=== PATIENT | female | born 1960 | race Caucasian/White ===

== ENCOUNTER → 2017-10-07 | Outpatient (CLI) | payer BC | LOC: CFH 12:15 | PROVIDERS: ATTEND Obstetrics & Gynecology | DX: Z12.31 Encounter for screening mammogram for malignant neoplasm of breast (principal) | CPT/HCPCS: 77067 ==

== ENCOUNTER 2017-12-10 14:24 | Inpatient (IN) | payer BC ==
[~2017-12-10] VITALS: Ht 157.5 cm; Wt 72.1 kg
[2017-12-10 15:25] LABS: BASOPHILS # (AUTO) 0.04 x10^3/uL (0-0.1); BASOPHILS % (AUTO) 1 % (0-1); EOSINOPHILS # (AUTO) 0.21 x10^3/uL (0-0.4); EOSINOPHILS % (AUTO) 3 % (1-7); LYMPHOCYTES # (AUTO) 2.53 x10^3/uL (1-3.4); LYMPHOCYTES % (AUTO) 32 % (22-44); MD NO; MEAN CORPUSCULAR HEMOGLOBIN 29.9 pg (27.0-34.8); MEAN CORPUSCULAR HGB CONC 33.7 g/dL (32.4-35.8); MEAN CORPUSCULAR VOLUME 88.9 fL (80-100); MEAN PLATELET VOLUME 9.4 fL (7.4-10.4); MONOCYTES # (AUTO) 0.69 x10^3/uL (0.2-0.8); MONOCYTES % (AUTO) 9 % (2-9); NEUTROPHILS # (AUTO) 4.55 x10^3/uL (1.8-6.8); NEUTROPHILS % (AUTO) 57 % (42-75); PLATELET COUNT 287 x10^3/uL (130-400); RED BLOOD COUNT 4.61 x10^6/uL (3.82-5.3); RED CELL DISTRIBUTION WIDTH 13.4 % (9.6-15.2)
[2017-12-10 15:34] LABS: ALBUMIN 3.6 g/dL (3.4-5.0); ANION GAP 6 mmol/L (5-15); CALCIUM 8.6 mg/dL (8.5-10.1); CHLORIDE 108 mmol/L (98-107)
[2017-12-10 15:40] LABS: ALANINE AMINOTRANSFERASE 34 U/L (12-78); ALKALINE PHOSPHATASE 89 U/L (45-117); BILIRUBIN,TOTAL 0.3 mg/dL (0.2-1.0); CREATININE 0.79 mg/dL (0.55-1.02); TOTAL PROTEIN 7.4 g/dL (6.4-8.2); TROPONIN I < 0.015 ng/mL (0.000-0.045)
[2017-12-10 15:41] LABS: INTERNATIONAL NORMALIZED RATIO 0.96 (0.93-1.1)
[2017-12-10] MEDS ORDERED: NITROGLYCERIN OINT 2%, 1GM TP ONE ×2 (16:19→16:30)
[2017-12-10] MEDS ORDERED: ONDANSETRON ODT 4 MG PO ONE (16:30)
[2017-12-10] MEDS ORDERED: SODIUM CHLORIDE FLUSH 10ML SYR IVF PRN (16:30)
[2017-12-10] MEDS ORDERED: ONDANSETRON ODT 4 MG ONE (16:43)
[2017-12-10] MEDS ORDERED: MORPHINE SULFATE 4 MG/ML, 1ML ONE ×2 (16:43→22:10)
[2017-12-10] MEDS: MORPHINE SULFATE 4 MG/ML, 1ML IVPush PRN ×2 (16:53→22:18)
[2017-12-10] MEDS ORDERED: MORPHINE SULFATE 4 MG/ML, 1ML IVPush PRN (17:00)
[2017-12-10] MEDS ORDERED: BISACODYL 10 MG SUPP PR PRN (17:00)
[2017-12-10] MEDS ORDERED: ONDANSETRON 2MG/ML, 2ML IVPush PRN (17:00)
[2017-12-10] MEDS ORDERED: ENALAPRILAT 1.25 MG/ML, 2ML IVPush PRN (17:00)
[2017-12-10] MEDS ORDERED: DOCUSATE 100 MG CAPSULE PO PRN (17:00)
[2017-12-10] MEDS ORDERED: POLYETHYLENE GLYCOL 17 GM PACKET PO PRN (17:00)
[2017-12-10] MEDS: SODIUM CHLORIDE 0.9% 1,000 ML IV SCH (17:00)
[2017-12-10 17:46] LABS: THYROID STIMULATING HORMONE 1.24 mIU/L (0.358-3.740)
[2017-12-10] MEDS ORDERED: ACETAMINOPHEN 325 MG TABLET ONE (21:17)
[2017-12-10 21:19] LABS: TROPONIN I < 0.015 ng/mL (0.000-0.045)
[2017-12-10] MEDS: ACETAMINOPHEN 325 MG TABLET PO PRN (21:20)
[2017-12-11] MEDS ORDERED: MOME17SP NAS (00:29)
[2017-12-11 00:58] VITALS: BP 112/75
[2017-12-11 01:04] VITALS: BP 112/75
[2017-12-11] MEDS: ACETAMINOPHEN 325 MG TABLET PO PRN ×2 (04:05→11:59)
[2017-12-11 04:25] LABS: BASOPHILS # (AUTO) 0.07 x10^3/uL (0-0.1); BASOPHILS % (AUTO) 1 % (0-1); EOSINOPHILS # (AUTO) 0.42 x10^3/uL (0-0.4); EOSINOPHILS % (AUTO) 5 % (1-7); LYMPHOCYTES # (AUTO) 3.08 x10^3/uL (1-3.4); LYMPHOCYTES % (AUTO) 37 % (22-44); MD NO; MEAN CORPUSCULAR HEMOGLOBIN 29.3 pg (27.0-34.8); MEAN CORPUSCULAR VOLUME 88.7 fL (80-100); MEAN PLATELET VOLUME 9.3 fL (7.4-10.4); MONOCYTES # (AUTO) 0.91 x10^3/uL (0.2-0.8); MONOCYTES % (AUTO) 11 % (2-9); NEUTROPHILS # (AUTO) 3.82 x10^3/uL (1.8-6.8); NEUTROPHILS % (AUTO) 46 % (42-75); PLATELET COUNT 253 x10^3/uL (130-400); RED BLOOD COUNT 4.09 x10^6/uL (3.82-5.3); RED CELL DISTRIBUTION WIDTH 13.7 % (9.6-15.2)
[2017-12-11 04:34] LABS: ANION GAP 6 mmol/L (5-15); CALCIUM 7.4 mg/dL (8.5-10.1); CHLORIDE 113 mmol/L (98-107); CREATININE 0.68 mg/dL (0.55-1.02)
[2017-12-11] MEDS ORDERED: ASPIRIN 325 MG TABLET EC PO SCH (06:00)
[2017-12-11 08:00] VITALS: BP 95/73
[2017-12-11] MEDS ORDERED: REGADENOSON 0.4 MG/5 ML SYRINGE ONE (08:16)
[2017-12-11] MEDS: SODIUM CHLORIDE 0.9% 1,000 ML IV SCH (09:20)
[2017-12-11 12:30] VITALS: BP 127/77
== END 2017-12-11 15:28 | disposition home or self-care (01) | DRG 392 ==
LOC: ED 15:02 → EDIP 16:20 → CCU 12-11 00:54 → 5SO 12-11 10:27 → DCLOUNGE 12-11 15:22
PROVIDERS: ADMIT Hospitalist; ATTEND Hospitalist
DX: K21.9 Gastro-esophageal reflux disease without esophagitis (principal); I20.0 Unstable angina; F41.9 Anxiety disorder, unspecified; I10 Essential (primary) hypertension; Z82.49 Family history of ischemic heart disease and other diseases of the circulatory system; Z88.0 Allergy status to penicillin
CPT/HCPCS: 36415; 71045; 78452; 80048; 80053; 83690; 83735; 84443; 84484; 85025; 85610; 85730; 87081; 93005; 93017; 93306; 96374; 96376; J2785; Q0162; A9502; C9898; J7030

== ENCOUNTER → 2018-10-20 | Outpatient (CLI) | payer BC ==
[~2018-10-20] MED LIST: MOME17SP NAS
== END | disposition home or self-care (01) ==
LOC: EDSTATUS 10-14 10:15 → CFH 12:51 → EDSTATUS 13:00
PROVIDERS: ATTEND Obstetrics & Gynecology
DX: Z12.31 Encounter for screening mammogram for malignant neoplasm of breast (principal)
CPT/HCPCS: 77063; 77067

== ENCOUNTER 2021-01-09 12:08 | Emergency (ER) | payer BC ==
[~2021-01-09] VITALS: Ht 160 cm; Wt 65.7 kg
[2021-01-09] MEDS ORDERED: ONDANSETRON 2MG/ML, 2ML IVPush ONE (13:00)
[2021-01-09] MEDS ORDERED: KETOROLAC 30 MG/1 ML IVPush ONE (13:00)
[2021-01-09] MEDS ORDERED: KETOROLAC 30 MG/1 ML ONE (13:17)
[2021-01-09] MEDS ORDERED: ONDANSETRON 2MG/ML, 2ML ONE (13:17)
[2021-01-09 13:20] LABS: ALANINE AMINOTRANSFERASE 36 U/L (12-78); ALBUMIN 3.7 g/dL (3.4-5.0); ANION GAP 7 mmol/L (5-15); CALCIUM 9.1 mg/dL (8.5-10.1); CHLORIDE 111 mmol/L (98-107)
[2021-01-09 13:21] LABS: BASOPHILS % (AUTO) 0 % (0-1); EOSINOPHILS % (AUTO) 0 % (1-7); LYMPHOCYTES % (AUTO) 9 % (22-44); MEAN CORPUSCULAR HEMOGLOBIN 30.4 pg (27.0-34.8); MEAN CORPUSCULAR HGB CONC 33.6 g/dL (32.4-35.8); MEAN PLATELET VOLUME 9.5 fL (7.4-10.4); MONOCYTES % (AUTO) 5 % (2-9); NEUTROPHILS % (AUTO) 86 % (42-75); PLATELET COUNT 291 x10^3/uL (130-400); RED BLOOD COUNT 4.83 x10^6/uL (3.82-5.3); RED CELL DISTRIBUTION WIDTH 13.5 % (9.6-15.2)
[2021-01-09 13:23] LABS: ALKALINE PHOSPHATASE 78 U/L (45-117); BILIRUBIN,TOTAL 0.5 mg/dL (0.2-1.0); TOTAL PROTEIN 7.2 g/dL (6.4-8.2)
--- NOTE | 2021-01-09 13:23 | NUR ---
PT AMBULATORY TO BR WITH UPRIGHT STEADY GAIT
[2021-01-09 13:30] VITALS: BP 136/84
--- NOTE | 2021-01-09 13:31 | NUR ---
PT SITTING ON GURNEY, WATCHING TV. NADN/VSS. CALL LIGHT WITHIN REACH. PT STATES ABD PAIN HAS DECREASED.
[2021-01-09 13:56] LABS: MICROSCOPIC AUTO
[2021-01-09] MEDS ORDERED: HYDROcodone/APAP 5/325 TABLET ONE (14:12)
[2021-01-09] MEDS ORDERED: HYDROcodone/APAP 5/325 TABLET PO ONE (14:30)
--- NOTE | 2021-01-09 14:44 | NUR ---
Patient given discharge instructions and RX, they have confirmed that they understand the instructions. Patient ambulatory with steady gait.
== END 2021-01-09 14:47 | disposition home or self-care (01) ==
LOC: ED 14:25
DX: N13.2 Hydronephrosis with renal and ureteral calculous obstruction (principal); Z88.0 Allergy status to penicillin
CPT/HCPCS: 36415; 74176; 80053; 81001; 83690; 85025; 96374; 96375; 99284; J1885; J2405